=== PATIENT | male | born 1975 | race Caucasian/White ===

== ENCOUNTER 2017-11-10 11:17 | Observation (INO) | payer OTHER, SELFPAY ==
[2017-11-10] MEDS ORDERED: Aspirin 325 mg EC Tablets PO STA (12:22)
--- NOTE | 2017-11-10 12:30 | ED PDOC ---
Arrival/HPI - General Chief Complaint: Weakness/Neurological Deficit Time Seen by Provider: 11/10/17 12:11 Historian: Patient - History of Present Illness Narrative History of Present Illness (Text): 11/10/17 12:30 A 42 year old male, whose past medical history includes diabetes, presents to the emergency department complaining of intermittent chest pain for the past couple months. Patient reports chest pain with dizziness and diaphoresis over the last couple days. Patient is a smoker, denies drinking alcohol. Patient denies any shortness of breath, nausea, vomiting or any other complaints at this time. Time/Duration: < week, > month Symptom Onset: Sudden Symptom Course: Unchanged Activities at Onset: Rest Context: Home Associated Symptoms (Text): 11/10/17 12:35 Intermittent left-sided chest pain for the last several months. No radiation. Over the last few days he's also had dizziness and diaphoresis associated with the chest pain. He is a smoker and diabetic. Past Medical History - Provider Review Nursing Documentation Reviewed: Yes - Cardiac Hx Cardiac Disorders: No - Pulmonary Hx Respiratory Disorders: No - Neurological Hx Neurological Disorder: No - HEENT Hx HEENT Disorder: No - Renal Hx Renal Disorder: No - Endocrine/Metabolic Hx Endocrine Disorders: Yes Hx Diabetes Mellitus Type 2: Yes - Hematological/Oncological Hx Blood Disorders: No - Integumentary Hx Dermatological Disorder: No - Musculoskeletal/Rheumatological Hx Musculoskeletal Disorders: No - Gastrointestinal Hx Gastrointestinal Disorders: No - Genitourinary/Gynecological Hx Genitourinary Disorders: No - Psychiatric Hx Psychophysiologic Disorder: No Hx Substance Use: No Family/Social History - Physician Review Nursing Documentation Reviewed: Yes Family/Social History: No Known Family HX Smoking Status: Current Some Days Smoker Hx Alcohol Use: No Hx Substance Use: No Allergies/Home Meds Allergies/Adverse Reactions: Allergies No Known Allergies Allergy (Verified 11/10/17 12:00) Home Medications: Home Meds Medication Instructions Recorded Confirmed metFORMIN [glucOPHAGE] 500 mg PO DAILY 11/10/17 11/10/17 Review of Systems - Physician Review All systems were reviewed & negative as marked: Yes - Review of Systems Constitutional: absent: Fatigue, Fevers Respiratory: absent: SOB Cardiovascular: Chest Pain. absent: Palpitations, Syncope Gastrointestinal: absent: Abdominal Pain, Nausea, Vomiting Neurological: Dizziness. absent: Headache, Focal Weakness Endocrine: Diaphoresis Physical Exam Vital Signs Reviewed: Yes Vital Signs Temp Pulse Resp BP Pulse Ox 11/10/17 12:23 76 20 137/86 98 11/10/17 12:01 98.8 F 72 16 139/82 95 Temperature: Afebrile Blood Pressure: Normal Pulse: Regular Respiratory Rate: Normal Appearance: Positive for: Well-Appearing, Non-Toxic, Comfortable Pain Distress: None Mental Status: Positive for: Alert and Oriented X 3 - Systems Exam Head: Present: Atraumatic, Normocephalic Pupils: Present: PERRL Extroacular Muscles: Present: EOMI Conjunctiva: Present: Normal Mouth: Present: Moist Mucous Membranes Pharnyx: No: ERYTHEMA, EXUDATE, TONSILS ENLARGED Neck: Present: Normal Range of Motion Respiratory/Chest: Present: Clear to Auscultation, Good Air Exchange. No: Respiratory Distress, Accessory Muscle Use, Tender to Palpation Cardiovascular: Present: Regular Rate and Rhythm, Normal S1, S2. No: Murmurs Abdomen: No: Tenderness, Distention, Peritoneal Signs Back: Present: Normal Inspection Upper Extremity: Present: Normal Inspection. No: Cyanosis, Edema Lower Extremity: Present: Normal Inspection. No: Edema Neurological: Present: GCS=15, CN II-XII Intact, Speech Normal, Motor Func Grossly Intact Skin: Present: Warm, Dry, Normal Color. No: Rashes Psychiatric: Present: Alert, Oriented x 3, Normal Insight, Normal Concentration Medical Decision Making ED Course and Treatment: 11/10/17 12:29 Impression: A 42 year old male with chest pain, dizziness and diaphoresis. Plan: -- EKG -- Chest X-ray -- labs -- Aspirin -- Reassess and disposition Progress Notes: 11/10/17 12:36 EKG shows normal sinus rhythm rate approximately [address] or T-wave changes 11/10/17 13:14 Chest X-ray Creator : Boo Berry MD IMPRESSION: No acute cardiopulmonary disease appreciated. - Lab Interpretations Lab Results: 11/10/17 13:00 11/10/17 13:00 Lab Results 11/10/17 13:00: Sodium 146, Potassium 3.7, Chloride 104, Carbon Dioxide 28, Anion Gap 17, BUN 11, Creatinine 0.9, Est GFR ( Amer) > 60, Est GFR (Non- Af Amer) > 60, Random Glucose 97, Calcium 10.1, Total Bilirubin 1.0, AST 55, ALT 79 H, Alkaline Phosphatase 68, Lactate Dehydrogenase 564, Total Creatine Kinase 224, Troponin I < 0.01, NT-Pro-B Natriuret Pep < 11.1, Total Protein 8.2 , Albumin 4.7, Globulin 3.4, Albumin/Globulin Ratio 1.4 11/10/17 13:00: WBC 4.7, RBC 5.33, Hgb 15.7, Hct 45.9, MCV 86.1, MCH 29.5, MCHC 34.2, RDW 13.4, Plt Count 217, MPV 10.0, Gran % 41.5 L, Lymph % (Auto) 49.0 H, [place] % (Auto) 7.2 H, Eos % (Auto) 2.1, Baso % (Auto) 0.2, Gran # 1.95, Lymph # ( Auto) 2.3, [place] # (Auto) 0.3, Eos # (Auto) 0.1, Baso # (Auto) 0.01 I have reviewed the lab results: Yes - RAD Interpretation Radiology Orders: 11/10/17 12:23 CHEST PORTABLE [RAD] Stat - EKG Interpretation Interpreted by ED Physician: Yes Type: 12 lead EKG - Medication Orders Current Medication Orders: Discontinued Medications Aspirin (Ecotrin) 325 mg PO STAT STA Stop: 11/10/17 12:23 Last Admin: 11/10/17 12:57 Dose: 325 mg - Scribe Statement The provider has reviewed the documentation as recorded by the Kristi Sheppard Provider Scribe Attestation: All medical record entries made by the Kristi were at my direction and personally dictated by me. I have reviewed the chart and agree that the record accurately reflects my personal performance of the history, physical exam, medical decision making, and the department course for this patient. I have also personally directed, reviewed, and agree with the discharge instructions and disposition. Disposition/Present on Arrival - Present on Arrival Any Indicators Present on Arrival: No History of DVT/PE: No History of Uncontrolled Diabetes: No Urinary Catheter: No History of Decub. Ulcer: No History Surgical Site Infection Following: None - Disposition Have Diagnosis and Disposition been Completed?: Yes Diagnosis: Chest pain Disposition: HOSPITALIZED Disposition Time: 13:39 Patient Plan: Observation, Telemetry Condition: GOOD Discharge Instructions (ExitCare): Chest Pain (ED) Referrals: Elba Sequeira MD [Primary Care Provider] - Follow up with primary Forms: [employer] (Moroccan)
[2017-11-10 13:05] LABS: BASO # 0.01 K/mm3 (0.0-2.0); BASO % 0.2 % (0.0-3.0); EOS # 0.1 (0.0-0.7); EOS % 2.1 % (1.5-5.0); GRAN # 1.95 (1.4-6.5); GRAN % 41.5 % (50.0-68.0); HEMOGLOBIN 15.7 g/dL (14.0-18.0); LYMPH # 2.3 (1.2-3.4); MEAN CELL VOLUME 86.1 fl (80.0-105.0); MEAN CORPUSCULAR HEMOGLOBIN 29.5 pg (25.0-35.0); MEAN CORPUSCULAR HGB CONC 34.2 g/dl (31.0-37.0); MONO # 0.3 (0.1-0.6); MONO % 7.2 % (1.0-6.0); RBC 5.33 10^6/uL (3.5-6.1); RED CELL DISTRIBUTION WIDTH 13.4 % (11.5-14.5); WHITE BLOOD COUNT 4.7 10^3/ul (4.5-11.0)
--- NOTE | 2017-11-10 13:11 | RAD ---
HISTORY: cp COMPARISON: No prior. FINDINGS: LUNGS: No active pulmonary disease. PLEURA: No significant pleural effusion identified, no pneumothorax apparent. CARDIOVASCULAR: Normal. OSSEOUS STRUCTURES: No significant abnormalities. VISUALIZED UPPER ABDOMEN: Normal. OTHER FINDINGS: None. IMPRESSION: No acute cardiopulmonary disease appreciated.
[2017-11-10 13:18] LABS: ALB/GLOB RATIO 1.4 (1.1-1.8); ALBUMIN 4.7 g/dL (3.0-4.8); ALT/SGPT 79 U/L (7-56); AST/SGOT 55 U/L (17-59); BLOOD UREA NITROGEN 11 mg/dL (7-21); CALCIUM 10.1 mg/dL (8.4-10.5); GFR AFRICAN-AMERICAN > 60; GFR NON-AFRICAN AMERICAN > 60
[2017-11-10 13:31] LABS: B-TYPE NATRIURETIC PEPTIDE < 11.1 pg/mL (0-450); TROPONIN I < 0.01 ng/mL
[2017-11-10 15:12] LABS: HDL CHOLESTEROL 39 mg/dL (29-60)
[2017-11-10 15:23] LABS: LDL CHOLESTEROL 160 mg/dL (0-129)
--- NOTE | 2017-11-10 15:32 | CP.PCM.HP ---
<Steffen Cee - Last Filed: 11/10/17 15:24> History of Present Illness - History of Present Illness History of Present Illness: Medicine H/P: Dr. Castro Chief Complaint: Chest pain HPI: 42 year old male with past medical history of diabetes and tobacco abuse presents with one month duration of chest pain. Patient states that the pain occurs on and off and certain positions do make it worse. Patient denies any shortness of breath with the pain, but states that he does get short of breath from time to time and is not able to walk long distances. Patient came into the ER today because he experienced diaphoresis with the pain and said "i felt like i was turning yellow." Patient denies any previous cardiac work up, including ECHO, Stress, and Cath. Patient further denies any nausea, vomiting, diarrhea, and any chest pain in the past. Patient denies recent illness, fevers, and chills. PMD: Dr. Sequeira Surgical History: Patient denies Medical History: Diabetes, Back pain Allergies: Patient denies Social History: Smokes 1 cigarette a day, denies alcohol and illicits, reliable historian Family History: Denies any cardiac history; Diabetes Medications: Metformin 500 daily; Ibuprofen 800 for back pain Review of Systems: 12 point ROS obtained and negative except as per HPI Present on Admission - Present on Admission Any Indicators Present on Admission: No Past Patient History - Past Social History Smoking Status: Current Some Days Smoker - CARDIAC Hx Cardiac Disorders: No - PULMONARY Hx Respiratory Disorders: No - NEUROLOGICAL Hx Neurological Disorder: No - HEENT Hx HEENT Problems: No - RENAL Hx Chronic Kidney Disease: No - ENDOCRINE/METABOLIC Hx Endocrine Disorders: Yes Hx Diabetes Mellitus Type 2: Yes - HEMATOLOGICAL/ONCOLOGICAL Hx Blood Disorders: No - INTEGUMENTARY Hx Dermatological Problems: No - MUSCULOSKELETAL/RHEUMATOLOGICAL Hx Musculoskeletal Disorders: No - GASTROINTESTINAL Hx Gastrointestinal Disorders: No - GENITOURINARY/GYNECOLOGICAL Hx Genitourinary Disorders: No - PSYCHIATRIC Hx Psychophysiologic Disorder: No Hx Substance Use: No - SURGICAL HISTORY Hx Surgeries: No Meds Allergies/Adverse Reactions: Allergies Allergy/AdvReac Type Severity Reaction Status Date / Time No Known Allergies Allergy Verified 11/10/17 12:00 Physical Exam - Constitutional Appears: Well - Head Exam Head Exam: ATRAUMATIC, NORMAL INSPECTION, NORMOCEPHALIC - Eye Exam Eye Exam: EOMI, Normal appearance, PERRL Pupil Exam: NORMAL ACCOMODATION, PERRL - ENT Exam ENT Exam: Mucous Membranes Moist, Normal Exam - Neck Exam Neck exam: Positive for: Normal Inspection - Respiratory Exam Respiratory Exam: Clear to Auscultation Bilateral, NORMAL BREATHING PATTERN - Cardiovascular Exam Cardiovascular Exam: REGULAR RHYTHM Additional comments: Tenderness to palpation in Left chest wall - GI/Abdominal Exam GI & Abdominal Exam: Normal Bowel Sounds, Soft. absent: Tenderness - Extremities Exam Extremities exam: Positive for: normal inspection - Back Exam Back exam: NORMAL INSPECTION - Neurological Exam Neurological exam: Alert, CN II-XII Intact, Normal Gait, Oriented x3, Reflexes Normal - Psychiatric Exam Psychiatric exam: Normal Affect, Normal Mood - Skin Skin Exam: Dry, Intact, Normal Color, Warm Results - Vital Signs Recent Vital Signs: Last Vital Signs Temp 98.8 F 11/10/17 12:01 Pulse 71 11/10/17 15:21 Resp 18 11/10/17 15:21 BP 132/79 11/10/17 15:21 Pulse Ox 98 11/10/17 15:21 - Labs Result Diagrams: 11/10/17 13:00 11/10/17 13:00 Assessment & Plan - Assessment and Plan (Free Text) Assessment: Assessment and Plan 42 year old male with past medical history of diabetes and back pain presenting with one month duration of left sided typical chest pain, not associated with any symptoms. ASCVD 16.2% 10 year. Chest pain rule out ACS, likely musculoskeletal - Tenderness to palpation on left chest wall; EKG showed NSR with no ST/T changes; Chest XR negative - Tropes X 3, ECHO, Coags pending, Trope X 1 negative - Dr. Curtis on consult - Lipid panel showed elevated cholesterol and LDL - Lipitor 20 Diabetes - TSH, A1C ordered - RISS Low Calf tenderness - Duplex, D-dimer Elevated ALT - No clinical signs of transaminitis - Monitor GI/DVT Prophylaxis - Heparin/Protonix <Rangasamy,Ajantha - Last Filed: 11/10/17 19:07> Results - Vital Signs Recent Vital Signs: Last Vital Signs Temp 98.3 F 11/10/17 18:00 Pulse 74 11/10/17 18:00 Resp 20 11/10/17 18:00 BP 98/67 L 11/10/17 18:00 Pulse Ox 99 11/10/17 18:00 - Labs Result Diagrams: 11/10/17 13:00 11/10/17 13:00 Attending/Attestation - Attestation I have personally seen and examined this patient.: Yes I have fully participated in the care of the patient.: Yes I have reviewed all pertinent clinical information: Yes Notes (Text): 11/10/17 19:05 attending note; Patient seen and examined with resident. Patient is a 42 year old male with past medical history of diabetes and tobacco abuse is admitted with chest pain. patient had nonspecific chest pain on and off. EKG showed normal sinus rhythm with no acute ST-T changes. Troponin 1 negative. Currently complaining of exertional dyspnea. Complaining of lower extremity discomfort. Doppler is negative. diabetes; continue regular Insulin sliding scale. active smoking; Smoking cessation is strongly advised. Admit to telemetry. Cardiac enzymes 3 ordered. Echocardiogram requested. Cardiology evaluation requested. Upon discharge the patient will follow-up with PMD Dr. Sequeira.
[2017-11-10] MEDS: Insulin Reg-LOW-Coverage SC SCH ×2 (16:42→22:11)
--- NOTE | 2017-11-10 17:37 | US ---
HISTORY: Leg pain and swelling. Evaluate for DVT PHYSICIAN(S): Mumtaz Bull MD. TECHNIQUE: Duplex sonography and color-flow Doppler with graded compression were used to evaluate the deep venous systems of both lower extremities. FINDINGS: The visualized deep venous systems of both lower extremities are sonographically normal and compressible. Normal wave forms and augmentation are seen. There is no sonographic evidence for deep venous thrombosis in the visualized segments of both lower extremities. IMPRESSION: No sonographic evidence for deep venous thrombosis in the visualized segments of both lower extremities.
[2017-11-10 17:43] VITALS: RESP 20
--- NOTE | 2017-11-10 19:14 | CARD ---
APPROVED REPORT EKG Measurement Heart [id number] <Conclusion> Normal sinus rhythm Normal ECG
[2017-11-10 21:02] LABS: D DIMER < 200 ng/mL (0-243); INR 1.05 (0.93-1.08); PARTIAL THROMBOPLASTIN TIME 28.2 Seconds (25.1-36.5)
[2017-11-11 05:49] VITALS: O2SAT 100
[2017-11-11] MEDS ORDERED: Pantoprazole 40 mg EC Tab PO SCH (06:00)
[2017-11-11] MEDS: Insulin Reg-LOW-Coverage SC SCH ×2 (07:38→12:36)
--- NOTE | 2017-11-11 12:55 | CARD ---
APPROVED REPORT EXAM: Two-dimensional and M-mode echocardiogram with Doppler and color Doppler. INDICATION Chest Pain 2D DIMENSIONS Left Atrium (2D)3.7 (1.6-4.0cm)IVSd0.9 (0.7-1.1cm) LVDd3.9 (3.9-5.9cm)PWd1.2 (0.7-1.1cm) LVDs2.8 (2.5-4.0cm)FS (%) 29.5 % LVEF (%)57.1 (>50%) M-Mode DIMENSIONS Aortic Root2.40 (2.2-3.7cm)Aortic Cusp Exc.1.50 (1.5-2.0cm) Aortic Valve AoV Peak Xtxdcnbn377.0cm/Emmanuel Peak GR.8mmHg Mitral Valve MV E Ojjlazrv22.0cm/sMV A Xbpapbtj10.0cm/sE/A ratio1.0 TDI E/Lateral E'0.0E/Medial E'0.0 Tricuspid Valve TR Peak [id number]/sRAP [id number] Peak Gr.16mmHg [id number] LEFT VENTRICLE The left ventricle is normal size. There is normal left ventricular wall thickness. The left ventricular function is normal. The left ventricular ejection fraction is within the normal range. There is normal LV segmental wall motion. Transmitral Doppler flow pattern is Grade I-abnormal relaxation pattern. RIGHT VENTRICLE The right ventricle is normal size. There is normal right ventricular wall thickness. The right ventricular systolic function is normal. ATRIA The left atrium size is normal. The right atrium size is normal. AORTIC VALVE The aortic valve is normal in structure. No aortic regurgitation is present. There is no aortic valvular stenosis. MITRAL VALVE The mitral valve is normal in structure. Mitral regurgitation is trace. There is no mitral valve stenosis. TRICUSPID VALVE The tricuspid valve is normal in structure. There is no tricuspid valve regurgitation noted. GREAT VESSELS The aortic root is normal in size. The IVC is normal in size and collapses >50% with inspiration. PERICARDIAL EFFUSION There is no pericardial effusion. <Conclusion> The left ventricle is normal size. There is normal left ventricular wall thickness. The left ventricular function is normal. The left ventricular ejection fraction is within the normal range. There is normal LV segmental wall motion. Transmitral Doppler flow pattern is Grade I-abnormal relaxation pattern.
--- NOTE | 2017-11-11 13:08 | CP.PCM.DIS ---
Provider - Provider Date of Admission: 11/10/17 13:38 Attending physician: Harvey Castro MD Primary care physician: Elba Sequeira MD Hospital Course - Lab Results Lab Results: Most Recent Lab Values WBC 4.7 10^3/ul (4.5-11.0) 11/10/17 13:00 RBC 5.33 10^6/uL (3.5-6.1) 11/10/17 13:00 Hgb 15.7 g/dL (14.0-18.0) 11/10/17 13:00 Hct 45.9 % (42.0-52.0) 11/10/17 13:00 MCV 86.1 fl (80.0-105.0) 11/10/17 13:00 MCH 29.5 pg (25.0-35.0) 11/10/17 13:00 MCHC 34.2 g/dl (31.0-37.0) 11/10/17 13:00 RDW 13.4 % (11.5-14.5) 11/10/17 13:00 Plt Count 217 10^3/uL (120.0-450.0) 11/10/17 13:00 MPV 10.0 fl (7.0-11.0) 11/10/17 13:00 Gran % 41.5 % (50.0-68.0) L 11/10/17 13:00 Lymph % (Auto) 49.0 % (22.0-35.0) H 11/10/17 13:00 [place] % (Auto) 7.2 % (1.0-6.0) H 11/10/17 13:00 Eos % (Auto) 2.1 % (1.5-5.0) 11/10/17 13:00 Baso % (Auto) 0.2 % (0.0-3.0) 11/10/17 13:00 Gran # 1.95 (1.4-6.5) 11/10/17 13:00 Lymph # (Auto) 2.3 (1.2-3.4) 11/10/17 13:00 [place] # (Auto) 0.3 (0.1-0.6) 11/10/17 13:00 Eos # (Auto) 0.1 (0.0-0.7) 11/10/17 13:00 Baso # (Auto) 0.01 K/mm3 (0.0-2.0) 11/10/17 13:00 PT 12.0 SECONDS (9.4-12.5) 11/10/17 20:10 INR 1.05 (0.93-1.08) 11/10/17 20:10 APTT 28.2 Seconds (25.1-36.5) 11/10/17 20:10 D-Dimer, Quantitative < 200 ng/mL (0-243) 11/10/17 20:10 Sodium 146 mmol/L (132-148) 11/10/17 13:00 Potassium 3.7 mmol/L (3.6-5.0) 11/10/17 13:00 Chloride 104 mmol/L (98-107) 11/10/17 13:00 Carbon Dioxide 28 mmol/L (21-33) 11/10/17 13:00 Anion Gap 17 (10-20) 11/10/17 13:00 BUN 11 mg/dL (7-21) 11/10/17 13:00 Creatinine 0.9 mg/dl (0.8-1.5) 11/10/17 13:00 Est GFR ( Amer) > 60 11/10/17 13:00 Est GFR (Non-Af Amer) > 60 11/10/17 13:00 POC Glucose (mg/dL) 123 mg/dL (65-110) H 11/11/17 12:14 Random Glucose 97 mg/dL (70-110) 11/10/17 13:00 Hemoglobin A1c 6.1 % (4.2-6.5) 11/10/17 20:10 Calcium 10.1 mg/dL (8.4-10.5) 11/10/17 13:00 Total Bilirubin 1.0 mg/dL (0.2-1.3) 11/10/17 13:00 AST 55 U/L (17-59) 11/10/17 13:00 ALT 79 U/L (7-56) H 11/10/17 13:00 Alkaline Phosphatase 68 U/L (38-126) 11/10/17 13:00 Lactate Dehydrogenase 564 U/L (333-699) 11/10/17 13:00 Total Creatine Kinase 224 U/L (35-230) 11/10/17 13:00 Troponin I < 0.01 ng/mL 11/11/17 02:05 NT-Pro-B Natriuret Pep < 11.1 pg/mL (0-450) 11/10/17 13:00 Total Protein 8.2 g/dL (5.8-8.3) 11/10/17 13:00 Albumin 4.7 g/dL (3.0-4.8) 11/10/17 13:00 Globulin 3.4 gm/dL 11/10/17 13:00 Albumin/Globulin Ratio 1.4 (1.1-1.8) 11/10/17 13:00 Triglycerides 103 mg/dL (35-160) 11/10/17 13:00 Cholesterol 238 mg/dL (130-200) H 11/10/17 13:00 LDL Cholesterol Direct 160 mg/dL (0-129) H 11/10/17 13:00 HDL Cholesterol 39 mg/dL (29-60) 11/10/17 13:00 TSH 3rd Generation 0.99 mIU/mL (0.46-4.68) 11/10/17 20:10 Discharge Exam - Head Exam Head Exam: ATRAUMATIC, NORMAL INSPECTION, NORMOCEPHALIC Discharge Plan - Discharge Medications Prescriptions: Atorvastatin [Lipitor] 20 mg PO DIN #30 tab - Follow Up Plan Condition: GOOD Disposition: HOME/ ROUTINE Instructions: Chest Pain (DC), Chest Pain (GEN) Additional Instructions: 1. Please follow up with Dr. Sequeira outpatient 2. Please ask Dr. Sequeira to set you up with a heart doctor (hoop machine operator) 3. You should get a stress test done once you establish care with a hoop machine operator Referrals: Elba Sequeira MD [Primary Care Provider] -
[2017-11-11 14:24] VITALS: BP 111/75; TEMP 98.3
--- NOTE | 2017-11-11 15:05 | CON ---
DATE: CARDIOLOGY CONSULT HISTORY OF PRESENT ILLNESS: The patient is 42-year-old [place] man who was diagnosed with diabetes mellitus one year ago, has no known prior cardiac history, who presents because of chest pain that he describes as pinching in the chest after he had an argument. The patient is unaware of any prior cardiac history. He denies any chest pain at this time. He denies any associated shortness of breath or diaphoresis with his initial presentation. SOCIAL HISTORY: The patient is occasional smoker, he works as a company driver. MEDICATIONS: Current medications are subcutaneous heparin 5000 units every 8 hours, Lipitor 20 mg once a day, Protonix 40 mg once day, and metformin 500 mg orally daily at home. REVIEW OF SYSTEMS: No fever or chills, no vomiting, no diarrhea. PHYSICAL EXAMINATION: GENERAL: The patient is middle-aged male who does not appear to be in any distress. VITAL SIGNS: Blood pressure 143/71, heart rate 71, temperature 99, respirations 20. HEENT: Normocephalic. NECK: No JVD. CHEST: Clear. HEART: S1 and S2, regular. ABDOMEN: Soft. EXTREMITIES: No edema. LABORATORY DATA: Three sets of troponin's are negative. SMA-7 is within normal limits. Total cholesterol is 238 and LDL cholesterol is 160, both are significantly elevated. PT, PTT, D-dimer are within normal limits. Hemoglobin, hematocrit, white count, and platelet count are within normal limits. An EKG revealed normal sinus rhythm. ASSESSMENT: 1. Atypical chest pain, myocardial infarction is ruled out. 2. History of diabetes mellitus. RECOMMENDATIONS: I did review the reports of the venous Doppler of the lower extremity as well as the chest x-ray, both were unremarkable. I will review the echocardiography study that was performed today and if unremarkable, the patient can be discharged to be followed by his primary physician for an outpatient stress test. The patient was fully informed about the need for outpatient stress test. James Wilson MD
[2017-11-11 15:15] VITALS: PULSE 93
--- NOTE | 2017-11-12 10:53 | CARD ---
APPROVED REPORT EKG Measurement Heart [id number] [place] 170P16 [id number] <Conclusion> Normal sinus rhythm Normal ECG
== END 2017-11-11 15:53 | disposition home or self-care (01) ==
LOC: ED 11:17 → ERH 13:38 → 3RSO 16:25
PROVIDERS: ADMIT Internal Medicine; ATTEND Internal Medicine
DX: R07.89 Other chest pain (principal); F17.210 Nicotine dependence, cigarettes, uncomplicated; E11.9 Type 2 diabetes mellitus without complications; E78.00 Pure hypercholesterolemia, unspecified
CPT/HCPCS: 36415; 71045; 80053; 80061; 82550; 82948; 83036; 83615; 83880; 84443; 84484; 85025; 85378; 85610; 85730; 93005; 93306; 93970; 99285; G0378; J1644